=== PATIENT | male | born 1945 | race Caucasian/White ===

== ENCOUNTER 2018-09-06 08:18 | Day surgery (SDC) | payer OTHER ==
[~2018-09-06 08:18] MED LIST: BACTRIM DS TABL1 TAB PO; COZAAR25 MG PO; GABAPENTIN PO; GLUMETZA1000 MG PO; LASIX20 MG PO; PERCOCET 5/3251 TAB PO; TAMS0.4C PO; XARELTO10 MG PO
== END 2018-09-06 11:55 | disposition home or self-care (01) ==
LOC: AMB-ENDOS 08:18
DX: R19.8 Other specified symptoms and signs involving the digestive system and abdomen (principal); Z86.010 Personal history of colon polyps